=== PATIENT | male | born 1965 ===

== ENCOUNTER → 2017-03-31 | Outpatient (CLI) | payer OTHER ==
[~2017-03-31] MED LIST: IOHEXOL 300 MG/ML 75 ML VIAL IV ONE
--- NOTE | 2017-03-31 17:05 | RAD ---
Indication: Hematuria. Pre- and postintravenous contrast axial imaging of the abdomen was performed. No prior studies are available for comparison. The lung bases are clear of acute infiltrates. The liver demonstrates diffuse low density consistent with fatty infiltration. No discrete liver mass is detected. The gallbladder is contracted. The pancreas and spleen are unremarkable. No adrenal mass is detected. No renal calculi are identified. No hydronephrosis is seen. The aorta is nonaneurysmal. No central retroperitoneal or mesenteric lymphadenopathy is detected. The small and large bowel loops are normal caliber. The axial delayed images were not submitted. The coronal reformations demonstrates contrast within bilateral renal collecting systems and ureters. No filling defects are identified. There appears to be generalized bladder wall thickening. No discrete bladder mass is detected. Impression: 1. Fatty infiltration of the liver. 2. Generalized bladder wall thickening, perhaps owing to incomplete distention. Cystitis could produce a similar appearance. No other abnormality is detected. PQRS Compliance Statement: One or more of the following individualized dose reduction techniques were utilized for this examination: 1. Automated exposure control 2. Adjustment of the mA and/or kV according to patient size 3. Use of iterative reconstruction technique
== END | disposition home or self-care (01) ==
LOC: CT 15:55
PROVIDERS: ATTEND Urology
DX: K76.0 Fatty (change of) liver, not elsewhere classified (principal)
CPT/HCPCS: 74178